=== PATIENT | male | born 1960 | race Caucasian/White ===

== ENCOUNTER 2019-06-12 03:39 | Inpatient (IN) ==
[2019-06-12 04:19] LABS: Hematocrit 44.4 % (42.0-52.0); Hemoglobin 15.5 gm/dL (13.5-18.0); Mean Cell Volume 93.5 fl (78-100); Mean Corpuscular Hemoglobin 32.6 pg (27-31); Mean Corpuscular Hgb Conc 34.9 g/dl (32-36); Neutrophil # 9.7 K/mm3 (1.3-6.0); Neutrophil % 71.5 % (42-75.0); Platelet Count 181 K/mm3 (150-450); Red Blood Count 4.75 M/mm3 (4.7-6.0); Red Cell Distribution Width 12.9 % (11.5-14.0); White Blood Count 13.6 K/mm3 (4.0-10.5)
[2019-06-12] MEDS ORDERED: DILTIAZEM HCL 5 MG/ML VIAL IV ONE (04:38)
[2019-06-12 04:42] LABS: Albumin * 3.4 gm/dl (3.4-5.0); Anion Gap 14.3 mmol/L (6.8-13.8); BUN/Creatinine Ratio 24.7 (9.0-21.6); Bilirubin, Total 0.7 mg/dL (0.0-1.1); Ca. Corrected For Albumin 9.6 mg/dL (8.4-10.2); Calcium * 9.4 mg/dL (7.9-10.9); Carbon Dioxide 25.6 mmol/L (24-32.6); Magnesium 1.8 mg/dL (1.2-2.8); Potassium 3.9 mmol/L (3.4-4.6); TSH * 3.685 uIU/mL (0.358-3.74); Total Protein 6.7 gm/dL (6.2-8.2)
[2019-06-12 04:44] LABS: Troponin I 0.07 ng/mL (0.00-0.10)
[2019-06-12] MEDS ORDERED: ASPIRIN 81 MG TAB.CHEW PO ONE (05:03)
[2019-06-12] MEDS ORDERED: ASPIRIN 81 MG TAB.CHEW ONE (05:04)
[2019-06-12] MEDS ORDERED: DILTIAZEM HCL 125 MG in DEXTROSE 5 % IN WATER 100 ML IV PRN ×2 (05:42)
[2019-06-12] MEDS ORDERED: FUROSEMIDE 40 MG TABLET PO ONE (07:15)
[2019-06-12] MEDS ORDERED: DILTIAZEM HCL 30 MG TABLET PO ONE ×2 (07:32→08:17)
[2019-06-12] MEDS ORDERED: DILTIAZEM HCL 120 MG CAP.SR.24H PO ONE ×2 (07:45→08:30)
--- NOTE | 2019-06-12 08:01 | ERNOTE ---
Dyspnea - Date Date of Service: 06/12/19 - General Presenting Symptoms: shortness of breath Time Seen by Provider: 06/12/19 03:40 Source: patient - Immun/Allergies/Home Medications Immunizations: IMMUNIZATION HX Immunizations Up to Date Yes History of Influenza Vaccine No Hx Pneumococcal Vaccination No Allergies/Adverse Reactions: Allergies No Known Allergies Allergy (Verified 06/12/19 09:44) Home Medications: HOME MEDICATIONS Aspirin 325 mg PO DAILY 06/12/19 [Last Taken 06/12/19] Multivitamin [One Daily Multivitamin] 1 tab PO DAILY 06/12/19 [Last Taken 06/12/19] - History of Present Illness Narrative: 59-year-old male presents for shortness of breath. Patient states that he started having symptoms on Thursday. He denies any chest pain with his symptoms. He denies any coughs or sore throats. He denies fevers or chills. Has not had symptoms like this before in the past. He denies any leg swelling or pain in his lower extremities. 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 Denies: fever/chills, sweating, chest pain/discomfort, cough, wheezing Review of Systems - Narrative Narrative: REVIEW OF SYSTEMS GENERAL: Negative for any nausea, vomiting, fevers, chills, or weight loss. HEENT: Negative for sore throats, congestion, changes in vision, changes in hearing, CARDIAC: Negative for any chest pain, dyspnea, or palpitations. PULMONARY: Negative for any cough, or wheezing. Positive for shortness of breath. GASTROINTESTINAL: Negative for any abdominal pain, nausea, vomiting, constipation, or diarrhea. GENITOURINARY: Negative for any dysuria, changes in urine output. INTEGUMENTARY: Negative for any rashes. NEUROLOGIC: Negative for changes in vision or headaches. RHEUMATOLOGIC: Negative for any joint pains, Medical History (Last Reviewed 06/12/19 @ 07:16 by Bar Bell MD) No pertinent past medical history Surgical History: Surgical History (Last Reviewed 06/12/19 @ 07:16 by Bar Bell MD) No significant past surgical history Family History: Family History (Last Updated 06/12/19 @ 09:43 by Diana Weaver RN) Mother Cancer Father Cancer Social History: (Last Reviewed 06/12/19 @ 07:16 by Bar Bell MD) Tobacco: Smoking Status: Current every day smoker Smoking cigarettes per day: 20 Smoking packs per day: 1 Alcohol: alcohol intake frequency: holiday/special occasion Substance Use: substance use type: does not use Physical Exam - Physical Exam General Appearance: Present: wd/wn, alert, no apparent distress Ears, Nose, Throat: Absent: pharyngeal erythema, pharyngeal swelling Respiratory: Present: normal breath sounds. Absent: rhonchi, wheezing Cardiovascular/Chest: Present: tachycardia, irregularly irregular Extremity Exam: Present: normal inspection, non-tender, no edema Neurological Exam: Present: alert, normal mood/affect Skin Exam: Present: normal color, warm/dry Progress - Date and Time Seen: Date and Time: 06/12/19 07:17 59-year-old male presents with shortness of breath. He was noted to have A. fib with RVR. He was also noted to have elevated white blood cell count 13.6 d- dimer at 0.55 BNP of 1266 and a troponin of 0.07. His initial heart rate was 140s A. fib RVR. He was started on diltiazem which resulted in rate control of his rhythm. He was also given 324 mg of p.o. aspirin. His chadsvas2 score is 0. CT scan was done to rule out PE. There is no signs of pulmonary embolism on CTA however it was noted to have pulmonary edema. Patient was also given 40 mg of p.o. Lasix. He was started on a diltiazem drip with titration. He remained hemodynamically stable. No signs of infectious process as an etiology. Case was discussed with Dr. Flores who accepted patient for further care and hospital treatment. - Results and Orders Patient's Lab Results:: I have reviewed the patient's lab results. - Vital Signs Patient's Vital Signs:: I have reviewed the patient's vital signs. Vital Signs: Vital Signs 06/12/19 03:42 06/12/19 03:45 06/12/19 03:57 Temperature 36.4 C Pulse Rate 118 H 130 H 132 H Respiratory Rate 28 H 16 Blood Pressure 165/117 H 152/100 H O2 Sat by Pulse Oximetry 95 95 06/12/19 04:31 06/12/19 04:44 06/12/19 04:53 Temperature Pulse Rate 126 H 126 H 90 Respiratory Rate 24 H 16 Blood Pressure 136/104 H 145/90 H 108/73 O2 Sat by Pulse Oximetry 96 96 06/12/19 05:08 06/12/19 05:29 06/12/19 05:54 Temperature Pulse Rate 105 H 106 H 108 H Respiratory Rate 16 16 16 Blood Pressure 109/73 131/89 131/89 O2 Sat by Pulse Oximetry 96 96 95 06/12/19 06:27 06/12/19 06:50 Temperature Pulse Rate 104 H 111 H Respiratory Rate 16 Blood Pressure 117/87 117/87 O2 Sat by Pulse Oximetry 95 - EKG EKG #1 EKG: atrial fibrillation - A. fib with RVR, rate of 132, no ischemic findings. - Progress/Reassessment Chief Complaint: Dyspnea Progress:: Improved - Transfer of Care Expected Disposition: Admit Departure Clinical Impression: New onset a-fib - Departure Disposition: Still a patient Condition: Stable
[2019-06-12] MEDS ORDERED: DILTIAZEM HCL 5 MG/ML VIAL IV PRN (09:20)
--- NOTE | 2019-06-12 10:45 | HP ---
Chief Complaint - Chief Complaint Date of Service: 06/12/19 Time of Service: 10:00 Chief Complaint: Weakness and shortness of breath, irregular heart rhythm History of Present Illness: Rony Louise is a 59-year-old male patient who presented with weakness, shortness of breath and fluttering in his chest. He was diagnosed in ER with atrial fibrillation with RVR with rates in the 128-140 range. He was given IV Cardizem which slowed him into the upper 80s but remained in atrial fibrillation. As soon as he arrived on the floor I was in the room when he transferred from the wheelchair to his bed and his heart rate was about 130-140 per auscultation. He received IV Cardizem in in the ER and then was placed on 120 mg p.o. and he has had 2 doses of that through the night. Lab: White count is elevated at 13,600 but with a normal differential. D-dimer is mildly elevated at 55. CT angiogram of the leg showed no DVT. Sodium is 147, potassium 3.9, chloride 111, CO2 25.6. Renal status is normal. Glucose randomly is 128. TSH is normal at 3.685. His BNP is 1266. EKG shows atrial fibrillation with RVR and no acute injury pattern. The chest x-ray shows pulmonary vascular congestion and perhaps some right atrial enlargement. I do not hear any murmurs on auscultation. I cannot place him on IV Cardizem drip or other drips because we do not have nursing staffing for the SCU. I will try to get his rate down with oral agents. I will start him on amiodarone. Medical History (Last Reviewed 06/12/19 @ 09:43 by Diana Weaver RN) No pertinent past medical history Surgical History: Surgical History (Last Reviewed 06/12/19 @ 09:43 by Diana Weaver RN) No significant past surgical history Family History: Family History (Last Updated 06/12/19 @ 09:43 by Diana Weaver RN) Mother Cancer Father Cancer Social History: (Last Reviewed 06/12/19 @ 09:44 by Diana Weaver RN) Tobacco: Smoking Status: Current every day smoker Smoking cigarettes per day: 20 Smoking packs per day: 1 Alcohol: alcohol intake frequency: holiday/special occasion Substance Use: substance use type: does not use Review Of Systems (GEN) - Review of Systems Generalized/Overall Review: Present: Weakness, Fatigue EENTM: Present: No Symptoms Reported Respiratory: Present: Shortness of Breath, Orthopnea Cardiac: Present: Palpitations Abdominal: Present: No Symptoms Reported Genitourinary: Present: No Symptoms Reported Musculoskeletal: Present: No Symptoms Reported Neurological: Present: No Symptoms Reported, Weakness Endocrine: Present: No Symptoms Reported Misc: All systems neg except as marked Immunizations: IMMUNIZATION HX Immunizations Up to Date Yes History of Influenza Vaccine No Hx Pneumococcal Vaccination No Allergies/Adverse Reactions: Allergies Allergy/AdvReac Type Severity Reaction Status Date / Time No Known Allergies Allergy Verified 06/12/19 09:44 Home Medications: HOME MEDICATIONS Aspirin 325 mg PO DAILY 06/12/19 [Last Taken 06/12/19] Multivitamin [One Daily Multivitamin] 1 tab PO DAILY 06/12/19 [Last Taken 06/12/19] Exam - Exam Vital Signs: Vital Signs - Last Taken Temp 37.2 C 06/12/19 09:47 Pulse 114 H 06/12/19 10:00 Resp 18 06/12/19 09:47 BP 129/98 H 06/12/19 09:47 Pulse Ox 93 06/12/19 09:47 Constitutional: Present: Alert, Oriented x3, Cooperative, Well developed, Well nourished, No distress ENT Exam: Present: normal ENT inspection, hearing grossly normal, pharynx normal, TMs normal Eye Exam: bilateral eye: normal inspection, PERRL, EOMI Neck: Present: non-tender, full range of motion, supple, normal inspection Back Exam: Present: normal inspection, no CVA tenderness Breasts: Present: Exam deferred Respiratory: Present: chest non-tender, lungs clear, normal breath sounds, other - Mild tachypnea Cardiovascular/Chest: Present: normal peripheral pulses, tachycardia, irregularly irregular Peripheral Pulses: carotid (R): 2+, carotid (L): 2+, radial (R): 2+, radial (L): 2+ Abdomen: Present: Normal bowel sounds, soft, nontender, nondistended, no rebound tenderness, no hepatospenomegaly, no masses /Rectal: Present: Exam deferred, External genitalia normal Extremity: Present: normal range of motion, non-tender, normal inspection, no pedal edema, no calf tenderness, normal capillary refill Skin Exam: Present: normal color, warm/dry, no cyanosis Lymphatic: Present: no adenopathy Neurologic: Present: advertising specialist II-XII nml as tested, normal cerebellar test, no motor/sensory deficits, normal mood/affect, oriented x 3 Appearance: Present: appropriate appearance, appropriate insight, neat, no memory impairment Eye contact: Present: cooperative, good eye contact, normal speech Thoughts: Present: normal thought pattern, no apparent hallucination Diagnostic Studies: Abnormal Lab Results 06/12/19 06/12/19 06/12/19 Range/Units 04:15 04:15 04:15 WBC 13.6 H (4.0-10.5) K/mm3 MCH 32.6 H (27-31) pg MPV 12.0 H (8-11.3) fl Immature Gran # (Auto) 0.05 H (0.000-0.0310) K/mm3 Lymphocytes % 16.9 L (20-51) % Neutrophils # 9.7 H (1.3-6.0) K/mm3 Monocytes # 1.2 H (0.0-1.0) k/mm3 D-Dimer 0.55 H (0.19-0.49) ug/mL Sodium 147 H (132-142) mmol/L Plasma Sodium 147 H (130-142) mmol/L Chloride 111 H (97-106) mmol/L Anion Gap 14.3 H (6.8-13.8) mmol/L BUN 24 H (6-23) mg/dL BUN/Creatinine Ratio 24.7 H (9.0-21.6) Random Glucose 128 H (70-110) mg/dL B-Natriuretic Peptide 1266 H (5-175) pg/mL Laboratory Results WBC 13.6 K/mm3 (4.0-10.5) H 06/12/19 04:15 RBC 4.75 M/mm3 (4.7-6.0) 06/12/19 04:15 Hgb 15.5 gm/dL (13.5-18.0) 06/12/19 04:15 Hct 44.4 % (42.0-52.0) 06/12/19 04:15 MCV 93.5 fl (78-100) 06/12/19 04:15 MCH 32.6 pg (27-31) H 06/12/19 04:15 MCHC 34.9 g/dl (32-36) 06/12/19 04:15 RDW 12.9 % (11.5-14.0) 06/12/19 04:15 Plt Count 181 K/mm3 (150-450) 06/12/19 04:15 MPV 12.0 fl (8-11.3) H 06/12/19 04:15 Immature Gran % (Auto) 0.40 % (0.001-0.429) 06/12/19 04:15 Immature Gran # (Auto) 0.05 K/mm3 (0.000-0.0310) H 06/12/19 04:15 Neutrophils % 71.5 % (42-75.0) 06/12/19 04:15 Lymphocytes % 16.9 % (20-51) L 06/12/19 04:15 Monocytes % 9.0 % (0.0-9) 06/12/19 04:15 Eosinophils % 1.5 % (0.0-3.0) 06/12/19 04:15 Basophils % 0.7 % (0.0-1.0) 06/12/19 04:15 Nucleated RBC % 0.0 k/mm3 (0-1) 06/12/19 04:15 Neutrophils # 9.7 K/mm3 (1.3-6.0) H 06/12/19 04:15 Lymphocytes # 2.30 k/mm3 (1.5-3.5) 06/12/19 04:15 Monocytes # 1.2 k/mm3 (0.0-1.0) H 06/12/19 04:15 Eosinophils # 0.2 k/mm3 (0.0-0.7) 06/12/19 04:15 Absolute Basophils 0.1 k/mm3 (0.0-0.1) 06/12/19 04:15 D-Dimer 0.55 ug/mL (0.19-0.49) H 06/12/19 04:15 Sodium 147 mmol/L (132-142) H 06/12/19 04:15 Plasma Sodium 147 mmol/L (130-142) H 06/12/19 04:15 Potassium 3.9 mmol/L (3.4-4.6) 06/12/19 04:15 Chloride 111 mmol/L (97-106) H 06/12/19 04:15 Carbon Dioxide 25.6 mmol/L (24-32.6) 06/12/19 04:15 Anion Gap 14.3 mmol/L (6.8-13.8) H 06/12/19 04:15 BUN 24 mg/dL (6-23) H 06/12/19 04:15 Creatinine 0.97 mg/dL (0.4-1.4) 06/12/19 04:15 Est GFR (Non-Af Amer) 84 mL/min (60-130) 06/12/19 04:15 BUN/Creatinine Ratio 24.7 (9.0-21.6) H 06/12/19 04:15 Random Glucose 128 mg/dL (70-110) H 06/12/19 04:15 Calcium 9.4 mg/dL (7.9-10.9) 06/12/19 04:15 Calcium Adj for Albumin 9.6 mg/dL (8.4-10.2) 06/12/19 04:15 Magnesium 1.8 mg/dL (1.2-2.8) 06/12/19 04:15 Total Bilirubin 0.7 mg/dL (0.0-1.1) 06/12/19 04:15 AST 16 U/L (0-48) 06/12/19 04:15 ALT 22 U/L (19-67) 06/12/19 04:15 Alkaline Phosphatase 106 U/L (50-170) 06/12/19 04:15 Troponin I 0.070 ng/mL (0.00-0.10) 06/12/19 04:15 B-Natriuretic Peptide 1266 pg/mL (5-175) H 06/12/19 04:15 Total Protein 6.7 gm/dL (6.2-8.2) 06/12/19 04:15 Albumin 3.4 gm/dl (3.4-5.0) 06/12/19 04:15 TSH 3.685 uIU/mL (0.358-3.74) 06/12/19 04:15 Assessment/Plan - Narrative Narrative: 1. Continue Cardizem ER but increased to 240 [place] grams twice daily 2. Add amiodarone starting with 150 mg IV infusion and then switch to 100 mg twice daily 3. Recheck EKG chemistry profile and blood count again tomorrow morning 4. Check echocardiogram to see if there is right atrial dilation or valvular pathology. - Assessment/Plan (1) Atrial fibrillation with RVR Problem: Acute (2) Acute dyspnea Problem: Acute (3) Essential hypertension Problem: Acute (4) New onset a-fib Problem: Acute
[2019-06-12] MEDS ORDERED: AMIODARONE HCL 150 MG in DEXTROSE 5 % IN WATER 100 ML IV ONE ×2 (10:47)
[2019-06-12] MEDS ORDERED: DILTIAZEM HCL 90 MG CAP.SR.12H PO SCH (11:00)
[2019-06-12] MEDS ORDERED: AMIODARONE HCL 200 MG TABLET PO SCH (12:15)
--- NOTE | 2019-06-12 13:58 | DS ---
Transfer Discharge Summary - Diagnosis(s)/Problems (1) Atrial fibrillation with RVR Problem: Acute (2) Acute dyspnea Problem: Acute (3) Essential hypertension Problem: Acute (4) New onset a-fib Problem: Acute - Course Description of Stay: Rony Louise is a 59-year-old male patient who became short of breath and was noticing palpitations in his chest. He presented to the emergency room and was found to be in atrial fibrillation with RVR. He was evaluated and then treated with IV Cardizem followed by Cardizem CD 820 mg x 2 doses about 6 hours apart. This has not slowed his heart rate much if any. He continues to be in A. fib with RVR. I have given him a single dose of oral amiodarone 200 mg p.o. We are unable to do amiodarone IV ordered to do any drips because our SCU is close due to lack of nurses. I spoken with Dr. Larsen who recommends transferring him to [place] where they will do a CHANDU tomorrow morning followed by DC cardioversion if there is no clots present. I have discussed this with him and his and they are in agreement to be transferred today. Dr. Tiff Harris, hospitalist at [facility], has agreed to accept. Procedures Performed: none - Results and Findings Results and Findings: Laboratory Results - last 24 hr 06/12/19 06/12/19 06/12/19 04:15 04:15 04:15 WBC 13.6 H RBC 4.75 Hgb 15.5 Hct 44.4 MCV 93.5 MCH 32.6 H MCHC 34.9 RDW 12.9 Plt Count 181 MPV 12.0 H Immature Gran % (Auto) 0.40 Immature Gran # (Auto) 0.05 H Neutrophils % 71.5 Lymphocytes % 16.9 L Monocytes % 9.0 Eosinophils % 1.5 Basophils % 0.7 Nucleated RBC % 0.0 Neutrophils # 9.7 H Lymphocytes # 2.30 Monocytes # 1.2 H Eosinophils # 0.2 Absolute Basophils 0.1 D-Dimer 0.55 H Sodium 147 H Plasma Sodium 147 H Potassium 3.9 Chloride 111 H Carbon Dioxide 25.6 Anion Gap 14.3 H BUN 24 H Creatinine 0.97 Est GFR (Non-Af Amer) 84 BUN/Creatinine Ratio 24.7 H Random Glucose 128 H Calcium 9.4 Calcium Adj for Albumin 9.6 Magnesium 1.8 Total Bilirubin 0.7 AST 16 ALT 22 Alkaline Phosphatase 106 Troponin I 0.070 B-Natriuretic Peptide 1266 H Total Protein 6.7 Albumin 3.4 TSH 3.685 - Medications Medications: Active Medications Amiodarone HCl (Cordarone) 200 mg PO DAILY NEHA Stop: 07/12/19 12:16 Last Admin: 06/12/19 12:54 Dose: 200 mg Documented by: Discontinued Medications Aspirin (Aspirin Chewable) 324 mg PO ONCE ONE Stop: 06/12/19 05:04 Last Admin: 06/12/19 05:05 Dose: 324 mg Documented by: Diltiazem HCl (Cardizem) 25 mg IV ONCE ONE Stop: 06/12/19 04:39 Last Admin: 06/12/19 04:44 Dose: 25 mg Documented by: Diltiazem HCl (Cardizem Cd) 120 mg PO ONCE ONE Stop: 06/12/19 07:46 Last Admin: 06/12/19 07:48 Dose: 120 mg Documented by: Diltiazem HCl (Cardizem Cd) 120 mg PO ONCE ONE Stop: 06/12/19 08:31 Last Admin: 06/12/19 08:22 Dose: 120 mg Documented by: Furosemide (Lasix) 40 mg PO ONCE ONE Stop: 06/12/19 07:16 Last Admin: 06/12/19 07:18 Dose: 40 mg Documented by: Diltiazem HCl 125 mg/ Dextrose (/Water) 125 mls @ 0 mls/hr IV TITR PRN; Protocol PRN Reason: Arrhythmia Stop: 07/12/19 05:43 Last Titration: 06/12/19 09:09 Dose: 0 mg/hr, 0 mls/hr Documented by: - Disposition Disposition: Short Term Hospital Inpatient Condition: Stable Discharge Date: 06/12/19 Discharge Time: 13:58
[2019-06-12] MEDS ORDERED: ACETAMINOPHEN 500 MG TABLET PO PRN (16:16)
[2019-06-12 16:41] VITALS: BP 148/98
[2019-06-12] MEDS ORDERED: APIXABAN 5 MG TABLET PO SCH (21:00)
[2019-06-12] MEDS ORDERED: FLU VACC QS2019-20(6MOS UP)/PF 60 MCG/0.5 ML SYRINGE IM ONE (21:00)
[2019-06-13] MEDS ORDERED: MULTIVITAMINS 1 CAP CAPSULE PO SCH (09:00)
[2019-06-13] MEDS ORDERED: AMIODARONE HCL 200 MG TABLET PO SCH (09:00)
== END 2019-06-12 16:45 | disposition short-term general hospital (02) | DRG 310 ==
LOC: ER 03:39 → MS 09:20
PROVIDERS: ADMIT Family Medicine; ATTEND Family Medicine
CPT/HCPCS: 36415; 71020; 71046; 71275; 80053; 83519; 83735; 83880; 84443; 84484; 85025; 85379; 93005; 96365; 96366; 96375; 99283; 99285; Q9967